=== PATIENT | female | born 1930 | race Caucasian/White ===

== ENCOUNTER 2018-09-08 13:42 | Inpatient (IN) | payer OTHER ==
[~2018-09-08] VITALS: Ht 167.6 cm; Wt 69.7 kg
[2018-09-08 13:47] VITALS: Ht 167.6 cm; Wt 69.7 kg
--- NOTE | 2018-09-08 14:23 | NUR ---
PT RETURNED TO OB FROM RADIOLOGY WITHOUT INCIDENT.
[2018-09-08 14:27] LABS: microscopic required? NO
--- NOTE | 2018-09-08 14:27 | NUR ---
XRAY AT BEDSIDE.
[2018-09-08 14:53] LABS: UA SPECIFIC GRAVITY <=1.005 (1.005-1.035); urine erythrocyte NEGATIVE (NEGATIVE)
[2018-09-08 15:12] LABS: BASOPHIL % 0.3 % (0-2); PLATELET COUNT 140 x10^3mcL (130-400); RED CELL DISTRIBUTION WIDTH 12.4 % (11.5-14.5)
[2018-09-08 15:15] LABS: CALCIUM 8.3 mg/dL (8.5-10.1); CARBON DIOXIDE 33.6 mmol/L (21-32); CHLORIDE SERUM 107 mmol/L (98-107); CREATININE SERUM 1.3 mg/dL (0.6-1.0); GLUCOSE SERUM 95 mg/dL (74-106); POTASSIUM SERUM 3.7 mmol/L (3.5-5.1); SODIUM SERUM 144 mmol/L (136-145)
[2018-09-08 15:20] LABS: ALKALINE PHOSPHATASE 104 U/L (46-116); ALT/SGPT 16 U/L (14-59); AST/SGOT 15 U/L (15-37); BILIRUBIN TOTAL 0.4 mg/dL (0.20-1.00)
[2018-09-08 15:21] LABS: ALBUMIN 2.6 g/dL (3.4-5.0); TOTAL PROTEIN, SERUM 5.7 g/dL (6.4-8.2)
--- NOTE | 2018-09-08 15:28 | NUR ---
PT RESTING ON ED GURNEY IN POSITION OF COMFORT. PT EASILY AROUSABLE. PT ON FULL CM. NAD. RESP E/U
[2018-09-08] MEDS ORDERED: CARVEDILOL3.125 M1 PO (16:46)
[2018-09-08] MEDS ORDERED: NATURE'S BLEND F1 MG PO (16:46)
[2018-09-08] MEDS ORDERED: ARICEPT5 MG PO (16:47)
[2018-09-08] MEDS ORDERED: MIC8 PO (16:47)
[2018-09-08] MEDS ORDERED: NAMENDA10 M2 PO (16:48)
[2018-09-08] MEDS ORDERED: EVI60 PO (16:48)
[2018-09-08] MEDS ORDERED: PRADAXA150 M1 PO (16:48)
[2018-09-08] MEDS ORDERED: ACCOLATE20 M1 PO (16:49)
[2018-09-08] MEDS ORDERED: ENALAPRIL MALEA10 MG PO (16:49)
[2018-09-08] MEDS ORDERED: DITROPAN XL5 MG PO (16:49)
[2018-09-08] MEDS ORDERED: EFFEXOR-XR75 MG PO (16:50)
[2018-09-08] MEDS ORDERED: RESTASIS0.051 OU (16:50)
[2018-09-08] MEDS ORDERED: APAP500 MG PO (16:50)
[2018-09-08] MEDS ORDERED: TRA50 PO (16:50)
[2018-09-08] MEDS ORDERED: HYDROCHLOROTH12.5 M2 PO (16:51)
[2018-09-08] MEDS ORDERED: SEROQUEL XR200 M1 PO (16:51)
[2018-09-08] MEDS ORDERED: LASIX20 MG PO (16:52)
[2018-09-08] MEDS ORDERED: DEPAKOTE ER500 MG PO (16:52)
[2018-09-08] MEDS ORDERED: CLARITIN LIQUI-10 MG PO (16:52)
[2018-09-08] MEDS ORDERED: COLACE100 MG PO (16:52)
[2018-09-08] MEDS ORDERED: OMEPRAZOLE40 M1 PO (16:53)
[2018-09-08] MEDS ORDERED: VENTOLIN H0.09 MG/A1 INH (16:54)
[2018-09-08 17:04] LABS: MAGNESIUM 1.8 mg/dL (1.8-2.4); PHOSPHOROUS 4.1 mg/dL (2.5-4.9)
[2018-09-08 17:16] LABS: FREE T4 0.75 ng/dL (0.76-1.46); FREE THYROXINE INDEX 1.8 ug/dL (1.4-4.5); T4(THYROXINE) 5.1 ug/dL (4.7-13.3)
--- NOTE | 2018-09-08 17:22 | NUR ---
RECEIVED PT FROM ED [facility] [employer], CAME IN DUE TO DIZZINESS. AAOX4. DENIES HEADACHE/DIZZINESS. ABLE TO FOLLOW SIMPLE COMMANDS. NO FACIAL DROOP/ARM DRIFT NOTED. HAND INK JET OPERATOR ARE EQUAL. NO SOB NOTED, LUNG SOUNDS CTA. DENIES CHEST PAIN/PRESSURE. SR ON THE MONITOR. DENIES ABDOMINAL DISCOMFORT. BOWEL SOUNDS ACTIVE. VOIDS. HOB ELEVATED AT 30 DEG. BED ALARM ON. CALL LIGHT ON REACH. ENDORSED TO PRIMARY NURSE CHAYO FOR CONTINUITY OF CARE.
[2018-09-08 17:25] LABS: T3 TOTAL 0.89 ng/mL
[2018-09-08 17:51] VITALS: BP 135/87
--- NOTE | 2018-09-08 17:59 | NUR ---
ATTEMPTED TO CALL PT'S DAUGHTER, GONZALEZ, AT BOTH LISTED PHONE NUMBERS. NO ANSWER. WILL ATTEMPT TO CALL AGAIN LATER
--- NOTE | 2018-09-08 20:43 | NUR ---
PT CURRENTLY RESTING IN BED, NO ACUTE DISTRESS. A/O X4, HX OF SEIZURES. TELE #35 SHOWING SINUS RHYTHM, DENIES CHEST PAIN. PULSES PALPABLE IN ALL EXTREMITIES, NO EDEMA NOTED. LUNG SOUNDS CTA BILATERALLY, DENIES SOB. BOWEL SOUNDS ACTIVE, LAST BM 09/08/18. VOIDING WELL. GENERALIZED WEAKNESS, AMBULATORY WITH ASSIST. SKIN INTACT. DENIES PAIN AT THIS TIME. IV PATENT AND INTACT. BED IN LOWEST POSITION, SIDE RAILS UP X2, CALL LIGHT WITHIN REACH. WILL CONTINUE TO MONITOR.
[2018-09-08 20:51] VITALS: BP 104/45
--- NOTE | 2018-09-09 01:10 | NUR ---
PT CURRENTLY RESTING IN BED, NO ACUTE DISTRESS. WILL CONTINUE TO MONITOR.
[2018-09-09 05:48] VITALS: BP 111/49
--- NOTE | 2018-09-09 06:23 | NUR ---
PT SLEPT PERIODICALLY THROUGHOUT NIGHT, NO ACUTE DISTRESS. ALL NEEDS MET AND ATTENDED TO. NO SIGNIFICANT CHANGES. IV PATENT AND INTACT. BED IN LOWEST POSITION, SIDE RAILS UP X2, CALL LIGHT WITHIN REACH. WILL ENDORSE CARE TO ONCOMING NURSE.
[2018-09-09 07:05] LABS: BASOPHIL % 0.3 % (0-2); RED CELL DISTRIBUTION WIDTH 12.5 % (11.5-14.5)
[2018-09-09 07:07] LABS: PLATELET COUNT 117 x10^3mcL (130-400)
[2018-09-09 07:26] LABS: CALCIUM 8.1 mg/dL (8.5-10.1); CARBON DIOXIDE 28.6 mmol/L (21-32); CHLORIDE SERUM 111 mmol/L (98-107); CREATININE SERUM 1.1 mg/dL (0.6-1.0); GLUCOSE SERUM 110 mg/dL (74-106); POTASSIUM SERUM 3.8 mmol/L (3.5-5.1); SODIUM SERUM 146 mmol/L (136-145)
--- NOTE | 2018-09-09 07:55 | NUR ---
RECEIVED PT. AWAKE,ALERT AND ABLE TO VERBALIZED NEEDS.C/O GEN. WEAKNESS REQUIRS. MOD. ASSIST. W/ ADL NEEDS. 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 DRESSING CDI W/ 2 MARIANA DRAIN RT. AND LEFT SIDE DRAINING SEROUSANGUINOUS DRAINAGE.ABD. DISTENDED /FIRM AND HYPOACTIVE BOWEL SOUNDS. RAMSAY CATH. PATENT AND DRAINING COLEMAN COLOR URINE. TURN AND REPOSITION Q 2 HRS FOR COMFORT .ENCOURAGE TO USED INCENTIVE SPIROMETER Q 1 HRS W/A X10 .CONT. IV FLUIDS ORDERED. DENIES ANY PAIN AT THIS TIME. CALL LIGHT W/ IN REACH.WILL CONT./ PLAN OF CARE.
--- NOTE | 2018-09-09 07:55 | NUR ---
AWAKE,ALERT AND ORIENTED,RECIEVED IV ACCESS LEAKING AND PULLED OUT BY PT.RE- INSERTED NEW IV ACCESS IN RT.HAND W/ GOOD BLOOD RETURN. REQUIRES/ MOD. ASSIST. W/ ADL NEEDS.ABLE TO AMBULATE INTHE BATHROOM W/ ASSIST. AND VOIDING WELL. CALL LIGHT W/ IN REACH.DENIES DIZINESS AND NO C/O PAIN AT THIS TIME.WILL CONT. PLAN OF CARE.
[2018-09-09 10:05] VITALS: BP 128/55
[2018-09-09 14:09] VITALS: BP 115/40
[2018-09-09 18:22] VITALS: BP 130/63
--- NOTE | 2018-09-09 19:35 | NUR ---
AOX4. MILD BODY TREMORS NOTED. DENIES DIZZINESS. MED SURG. LUNGS CLEAR ON RA. PULSES PALPABLE. NO EDEMA. BOWEL SOUNDS ACTIVE. VOIDS FREELY. AMBULATORY WITH ASSIST, BSC AT BEDSIDE. ABRASION TO LLE, JEFF. DENIES PAIN. IV TO LFA, PATENT AND INFUSING. GUIDANCE COUNSELOR AT BEDSIDE FOR ASSISTANCE WITH ADL'S. SEIZURE PRECAUTIONS IN PLACE. BED IN LOWEST POSITION, 2 SIDE RAILS UP, CALL LIGHT IN REACH. INSTRUCTED TO CALL FOR ASSISTANCE.
--- NOTE | 2018-09-09 20:35 | NUR ---
PT CURRENTLY RESTING IN BED, NO ACUTE DISTRESS. A/O X4. TELE #35 SHOWING SINUS RHYTHM, DENIES CHEST PAIN. PULSES PALPABLE IN ALL EXTREMITIES, NO EDEMA NOTED. LUNG SOUNDS CTA BILATERALLY, DENIES SOB. BOWEL SOUNDS ACTIVE, LAST BM 09/08/18. VOIDING WELL. GENERALIZED WEAKNESS, AMBULATORY WITH ASSIST. LLE SKIN TEAR, ICE CREAM MIXER. IV PATENT AND INTACT. BED IN LOWEST POSITION, SIDE RAILS UP X2, CALL LIGHT WITHIN REACH. WILL CONTINUE TO MONITOR.
[2018-09-09 21:10] VITALS: BP 119/42
--- NOTE | 2018-09-10 00:45 | NUR ---
PT CURRENTLY RESTING IN BED, NO ACUTE DISTRESS. WILL CONTINUE TO MONITOR.
[2018-09-10 05:29] VITALS: BP 125/45
[2018-09-10 07:09] LABS: CALCIUM 7.9 mg/dL (8.5-10.1); CARBON DIOXIDE 25.8 mmol/L (21-32); CHLORIDE SERUM 112 mmol/L (98-107); CREATININE SERUM 0.9 mg/dL (0.6-1.0); GLUCOSE SERUM 93 mg/dL (74-106); POTASSIUM SERUM 3.8 mmol/L (3.5-5.1); SODIUM SERUM 144 mmol/L (136-145)
--- NOTE | 2018-09-10 07:30 | NUR ---
AAO X4.DENIES ANY PAIN/DISCOMFORT.LUNGS CLEAR.ON SR ON THE MONITOR.IVF 1/2 NS GOING AT 70 ML/HR INFUSING WELL.CALL LIGHT WITHIN REACH.INSTRUCTED TO CALL FOR ANY PAIN/DISCOMFORT.WILL CONTINUE TO MONITOR PT.
[2018-09-10 08:50] VITALS: BP 137/59
[2018-09-10 11:04] LABS: BASOPHIL % 0.5 % (0-2); RED CELL DISTRIBUTION WIDTH 11.8 % (11.5-14.5)
[2018-09-10 11:10] LABS: PLATELET COUNT 103 x10^3mcL (130-400)
--- NOTE | 2018-09-10 11:54 | NUR ---
CALLED DAUGHTER TO INFORM HER THAT SHE NEEDS TO BRING THE EYEDROPS OF PT.LEFT A MESSAGE.
[2018-09-10 12:43] VITALS: BP 124/60
--- NOTE | 2018-09-10 14:52 | NUR ---
PT RESTING COMFORTABLY IN BED NO COMPLAINTS.
[2018-09-10 16:29] VITALS: BP 115/52
--- NOTE | 2018-09-10 18:43 | NUR ---
IV REINSERTED 22 G ON L FA BY CUATEBarby DAWN NURSE.
--- NOTE | 2018-09-10 18:44 | NUR ---
NO SIGNIFICANT CHANGE NOTED.WILL ENDORSE TO NEXT SHIFT.
--- NOTE | 2018-09-10 19:35 | NUR ---
AOX4. MILD BODY TREMORS NOTED. DENIES DIZZINESS. MED SURG. LUNGS CLEAR ON RA. PULSES PALPABLE. NO EDEMA. BOWEL SOUNDS ACTIVE. VOIDS FREELY. AMBULATORY WITH ASSIST, BSC AT BEDSIDE. ABRASION TO LLE, JEFF. DENIES PAIN. IV TO LFA, PATENT AND INFUSING. BATH ATTENDANT AT BEDSIDE FOR ASSISTANCE WITH ADL'S. SEIZURE PRECAUTIONS IN PLACE. BED IN LOWEST POSITION, 2 SIDE RAILS UP, CALL LIGHT IN REACH. INSTRUCTED TO CALL FOR ASSISTANCE.
[2018-09-10 21:25] VITALS: BP 121/54
--- NOTE | 2018-09-11 00:05 | NUR ---
IV TO LFA LEAKING, DC INTACT. NEW ACCESS ESTABLISHED TO RFA BY ZENA PRABHAKAR. IVF INFUSING TO RFA. PT TOLERATED WELL. WILL CONTINUE TO MONITOR.
[2018-09-11 05:49] VITALS: BP 136/52
[2018-09-11 06:15] LABS: BASOPHIL % 0.3 % (0-2); RED CELL DISTRIBUTION WIDTH 12.7 % (11.5-14.5)
--- NOTE | 2018-09-11 06:22 | NUR ---
NO ACUTE DISTRESS NOTED. NO ACUTE CHANGES. WILL ENDORSE TO ONCOMING RN.
[2018-09-11 06:25] LABS: PLATELET COUNT 109 x10^3mcL (130-400)
[2018-09-11 06:39] LABS: CALCIUM 7.7 mg/dL (8.5-10.1); CARBON DIOXIDE 26.8 mmol/L (21-32); CHLORIDE SERUM 110 mmol/L (98-107); CREATININE SERUM 0.8 mg/dL (0.6-1.0); GLUCOSE SERUM 92 mg/dL (74-106); POTASSIUM SERUM 3.9 mmol/L (3.5-5.1); SODIUM SERUM 145 mmol/L (136-145)
--- NOTE | 2018-09-11 07:20 | NUR ---
AAO X4.DENIES ANY PAIN/DISCOMFORT.LUNGS CLEAR.PT NON-TELE.IVF 1/2 NS GOING AT 70 ML/HR INFUSING WELL.LLE WITH ABRASSION JEFF.CALL LIGHT WITHIN REACH.INSTRUCTED TO CALL FOR ANY PAIN/DISCOMFORT.WILL CONTINUE TO MONITOR PT.
[2018-09-11 09:05] VITALS: BP 137/66
[2018-09-11 13:21] VITALS: BP 137/66
--- NOTE | 2018-09-11 13:30 | NUR ---
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
--- NOTE | 2018-09-11 14:31 | NUR ---
CALLED REPORT TO VANNA RAZO IN [facility].INFORMED HER ABOUT THE PICK-UP TIME BETWEEN [phone] BY [employer].
--- NOTE | 2018-09-11 15:46 | NUR ---
CLEANED AND PUT BETADINE ON LLE SCAB.ALSO TOOK PICTURE.GOT PT READY FOR TRANSFER.SIGNED CONSENT FOR TRANSFER.ALSO PAPERWORK COMPLETED.IV D/C'D.AWAITING FOR TRANSPORT TO [facility] PT.
--- NOTE | 2018-09-11 16:52 | NUR ---
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
== END 2018-09-11 16:58 | DRG 73 ==
LOC: ED 13:42 → DU 16:36 → MU 16:36 → DU 17:23 → MU 09-10 10:09
PROVIDERS: Emergency Medicine; ADMIT Internal Medicine
DX: G90.8 Other disorders of autonomic nervous system (principal); N17.0 Acute kidney failure with tubular necrosis; E43 Unspecified severe protein-calorie malnutrition; E86.0 Dehydration; R73.03 Prediabetes; I11.0 Hypertensive heart disease with heart failure; I50.9 Heart failure, unspecified; F32.9 Major depressive disorder, single episode, unspecified; F03.90 Unspecified dementia, unspecified severity, without behavioral disturbance, psychotic disturbance, mood disturbance, and anxiety; Z66 Do not resuscitate; M81.0 Age-related osteoporosis without current pathological fracture; Z68.24 Body mass index [BMI] 24.0-24.9, adult
CPT/HCPCS: 83880; 84439; 97110-GP; 97116-GP; 97530-GP; J3535; J7030; Q0092